=== PATIENT | male | born 1995 | race American Indian/Alaskan Native ===

== ENCOUNTER 2022-05-09 21:37 | Emergency (ER) | payer OTHER ==
[2022-05-09 22:32] VITALS: BP 115/63
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
== END 2022-05-10 03:04 | disposition home or self-care (01) ==
LOC: ED 21:37
DX: M54.9 Dorsalgia, unspecified (principal); Z91.09 Other allergy status, other than to drugs and biological substances; V89.2XXA Person injured in unspecified motor-vehicle accident, traffic, initial encounter; Y93.89 Activity, other specified; Y92.89 Other specified places as the place of occurrence of the external cause; Y99.8 Other external cause status
CPT/HCPCS: 99282